=== PATIENT | male | born 1960 | race Two or more races ===

== ENCOUNTER 2023-09-13 14:57 | Inpatient (IN) | payer OTHER ==
[~2023-09-13] VITALS: Ht 175.3 cm; Wt 79.4 kg
[2023-09-13] MEDS ORDERED: ZETIA10 MG PO (15:14)
[2023-09-13] MEDS ORDERED: 0.9 % SODIUM CHLORIDE 1,000 ML IV SCH ×2 (17:00→17:30)
[2023-09-13] MEDS ORDERED: MEPERIDINE HCL 25 MG/ML AMPUL IM PRN (17:00)
[2023-09-13] MEDS ORDERED: PROMETHAZINE HCL 25 MG/ML AMPUL IM PRN (17:00)
[2023-09-13 17:04] LABS: HEMATOCRIT 45.8 % (39.0-48.0); HEMOGLOBIN 15.9 g/dL (13-16.00); MEAN CELL VOLUME 89.8 fL (80.0-100.00); MEAN CORPUSCULAR HEMOGLOBIN 31.1 pg (27.00-32.0); MEAN CORPUSCULAR HGB CONC 34.7 g/dl (32.0-36.0); PLATELET COUNT 275 K/uL (150-450); RED CELL DISTRIBUTION WIDTH 13.4 % (11.5-14.5)
[2023-09-13 17:22] LABS: PARTIAL THROMBOPLASTIN TIME 30.4 SECONDS (22.0-34.0); PROTHROMBIN TIME 10.5 SECONDS (9.0-11.5)
[2023-09-13 17:27] LABS: ALBUMIN 3.6 gm/dL (3.4-5.0); BILIRUBIN TOTAL 0.44 mg/dL (0.3-1.2); CALCIUM 9.3 mg/dL (8.5-10.1); CREATININE SERUM 0.95 mg/dL (0.70-1.30); GFR 80.07; GLOBULINA 3.8 G/DL (2.4-3.5); POTASSIUM 3.97 mEq/L (3.5-5.1); TOTAL PROTEIN 7.4 gm/dL (6.4-8.2)
[2023-09-13] MEDS ORDERED: MEPERIDINE HCL/PF 25 MG/ML VIAL IM PRN (17:45)
[2023-09-13] MEDS ORDERED: ACETAMINOPHEN 500 MG GEL..CAP PO PRN (17:45)
[2023-09-13] MEDS ORDERED: ONDANSETRON HCL 4 MG in 0.9 % SODIUM CHLORIDE 50 ML IV PRN (17:45)
[2023-09-13] MEDS ORDERED: PIPERACILLIN/TAZOBACTAM SODIUM 3.375 GM in 0.9 % SODIUM CHLORIDE 100 ML IV SCH (18:00)
[2023-09-13] MEDS ORDERED: PIPERACILLIN/TAZOBACTAM SODIUM 3.375 GM in DEXTROSE 5 % IN WATER 100 ML IV SCH (18:00)
[2023-09-14 07:31] LABS: PH,URINE 5.5 (5.0-8.0); URINE APPEARANCE Clear; URINE BILIRRUBIN Negative (NEGATIVE); URINE BLOOD Negative; URINE COLOR Yellow; URINE GLUCOSE Negative (NEGATIVE); URINE LEUKOCYTE Negative; URINE NITRATE Negative; URINE PROTEIN Negative (NEGATIVE)
[2023-09-14 07:34] LABS: URINE RBC 3.5 uL (0.0-20.8); URINE WBC 3.7 uL (0.0-23.2)
[2023-09-14 07:37] LABS: URINE EPITHELIAL CELLS 1.2 uL (0.0-38.8)
[2023-09-14] MEDS ORDERED: DEXTROSE 5%-WATER 100ML IV.SOLN ONE (08:11)
[2023-09-14] MEDS ORDERED: ENOXAPARIN SODIUM 40 MG/0.4 ML SYRINGE SUBCUTANEO SCH (09:00)
[2023-09-14] MEDS ORDERED: FAMOTIDINE/PF 20 MG in 0.9 % SODIUM CHLORIDE 8 ML IV PUSH SCH (09:00)
[2023-09-15] MEDS ORDERED: MORPHINE SULFATE 2 MG/ML CARTRIDGE IV PRN (07:00)
[2023-09-17 07:07] LABS: CALCIUM 8.3 mg/dL (8.5-10.1); CREATININE SERUM 0.82 mg/dL (0.70-1.30); GFR 94.89; MAGNESIUM 1.8 mg/dL (1.8-2.4); PHOSPHOROUS 3.3 mg/dL (2.5-4.9); POTASSIUM 3.75 mEq/L (3.5-5.1)
[2023-09-17 07:45] LABS: HEMATOCRIT 40.8 % (39.0-48.0); HEMOGLOBIN 14.3 g/dL (13-16.00); MEAN CELL VOLUME 90.2 fL (80.0-100.00); MEAN CORPUSCULAR HEMOGLOBIN 31.6 pg (27.00-32.0); MEAN CORPUSCULAR HGB CONC 35.1 g/dl (32.0-36.0); PLATELET COUNT 243 K/uL (150-450); RED BLOOD COUNT 4.52 M/uL (4.00-6.00); RED CELL DISTRIBUTION WIDTH 12.9 % (11.5-14.5)
[2023-09-17] MEDS ORDERED: LACTOBACILLUS ACIDOPHILUS 1 CAP CAP PO SCH (10:34)
[2023-09-18] MEDS ORDERED: DIATRIZOATE MEGLUMINE, SODIUM 30 ML BOTTLE PO ONE (06:00)
[2023-09-18] MEDS ORDERED: DEXTROSE 5%-WATER 100ML IV.SOLN ONE (07:56)
[2023-09-19] MEDS ORDERED: AMOX-CLAV 875-1 EACH PO (09:03)
[2023-09-19] MEDS ORDERED: INTESTINEX680 M1 PO (09:03)
== END 2023-09-19 11:38 | disposition home or self-care (01) | DRG 392 ==
LOC: ER 14:58 → MEDJ 17:44 → SEC-K 17:44 → MEDJ 18:44
PROVIDERS: General Practice; ADMIT Internal Medicine; ATTEND Internal Medicine
PROC: BW21YZZ Computerized Tomography (CT Scan) of Abdomen and Pelvis using Other Contrast (ICD-10-PCS; principal; 2023-09-18)
DX: K57.20 Diverticulitis of large intestine with perforation and abscess without bleeding (principal); E78.5 Hyperlipidemia, unspecified; Z20.822 Contact with and (suspected) exposure to COVID-19

== ENCOUNTER 2024-02-07 11:30 | Inpatient (IN) | payer OTHER ==
[~2024-02-07] VITALS: Ht 175.3 cm; Wt 79.4 kg
[~2024-02-07 11:30] MED LIST: AMOX-CLAV 875-1 EACH PO; INTESTINEX680 M1 PO; ZETIA10 MG PO
[2024-02-09] MEDS ORDERED: CEFTRIAXONE SODIUM 2,000 MG VIAL ONE (06:49)
[2024-02-09] MEDS ORDERED: METRONIDAZOLE/SODIUM CHLORIDE 500 MG/100 ML PIGGYBACK IV ONE (06:50)
[2024-02-09] MEDS ORDERED: LIDOCAINE HCL 1%/EPINEPHRINE 20ML VIAL IJ ONE (07:13)
[2024-02-09] MEDS ORDERED: BUPIVACAINE HCL/MPF 0.5% 30ML VIAL ONE (07:13)
[2024-02-09] MEDS ORDERED: FAMOTIDINE40 MG (07:59)
[2024-02-09] MEDS ORDERED: PANTOPRAZOLE SO40 MG (07:59)
[2024-02-09] MEDS ORDERED: SUGAMMADEX SODIUM 200 MG/2 ML VIAL IV ONE (09:25)
[2024-02-09] MEDS ORDERED: LACTOBACILLUS ACIDOPHILUS 1 CAP CAP PO SCH (12:00)
[2024-02-09] MEDS ORDERED: TAMSULOSIN HCL 0.4 MG CAP PO SCH (12:00)
[2024-02-09] MEDS ORDERED: ONDANSETRON HCL 2 MG/ML VIAL IV PRN (12:15)
[2024-02-09] MEDS ORDERED: RINGERS SOLUTION,LACTATED 1,000 ML IV SCH (12:15)
[2024-02-09] MEDS ORDERED: OxyCODONE HCL 5 MG TABLET (ROXICODONE) PO PRN (12:15)
[2024-02-09] MEDS ORDERED: MORPHINE SULFATE 4 MG/ML CARTRIDGE IV PRN (12:15)
[2024-02-09] MEDS ORDERED: FAMOTIDINE/PF 20 MG/2 ML VIAL IV NR (12:30)
[2024-02-09] MEDS ORDERED: HYOSCYAMINE SULFATE 0.125 MG TAB.SUBL SL SCH (13:00)
[2024-02-09] MEDS ORDERED: GABAPENTIN 300 MG CAPSULE PO SCH (17:00)
[2024-02-09] MEDS ORDERED: METRONIDAZOLE/SODIUM CHLORIDE 500 MG/100 ML PIGGYBACK IV SCH (17:00)
[2024-02-09] MEDS ORDERED: ACETAMINOPHEN 500 MG GEL..CAP PO SCH (18:00)
[2024-02-09] MEDS ORDERED: CIPROFLOXACIN IN 5 % DEXTROSE 400 MG/200 ML PIGGYBAG IV SCH (21:00)
[2024-02-09] MEDS ORDERED: FAMOTIDINE/PF 20 MG/2 ML VIAL IV PUSH SCH (21:00)
[2024-02-10 08:36] LABS: HEMOGLOBIN 13.8 g/dL (13-16.00); MEAN CELL VOLUME 91.3 fL (80.0-100.00); MEAN CORPUSCULAR HEMOGLOBIN 32.3 pg (27.00-32.0); MEAN CORPUSCULAR HGB CONC 35.4 g/dl (32.0-36.0); PLATELET COUNT 208 K/uL (150-450); RED BLOOD COUNT 4.28 M/uL (4.00-6.00); RED CELL DISTRIBUTION WIDTH 13.4 % (11.5-14.5)
[2024-02-10 08:56] LABS: ALBUMIN 3.1 gm/dL (3.4-5.0); CALCIUM 8.8 mg/dL (8.5-10.1); CREATININE SERUM 0.89 mg/dL (0.70-1.30); GFR 86.33; PHOSPHOROUS 2.2 mg/dL (2.5-4.9); POTASSIUM 4.93 mEq/L (3.5-5.1)
[2024-02-10] MEDS ORDERED: ENOXAPARIN SODIUM 40 MG/0.4 ML SYRINGE SUBCUTANEO SCH (17:00)
[2024-02-10] MEDS ORDERED: METRONIDAZOLE/SODIUM CHLORIDE 500 MG/100 ML PIGGYBACK IV SCH (22:15)
[2024-02-10] MEDS ORDERED: CIPROFLOXACIN IN 5 % DEXTROSE 400 MG/200 ML PIGGYBAG IV SCH (22:15)
[2024-02-11 08:25] LABS: HEMATOCRIT 39.2 % (39.0-48.0); HEMOGLOBIN 13.7 g/dL (13-16.00); MEAN CELL VOLUME 92.6 fL (80.0-100.00); MEAN CORPUSCULAR HEMOGLOBIN 32.4 pg (27.00-32.0); PLATELET COUNT 206 K/uL (150-450); RED BLOOD COUNT 4.23 M/uL (4.00-6.00); RED CELL DISTRIBUTION WIDTH 13.2 % (11.5-14.5)
[2024-02-11 09:00] LABS: CALCIUM 8.9 mg/dL (8.5-10.1); CREATININE SERUM 0.88 mg/dL (0.70-1.30); GFR 87.46; POTASSIUM 3.79 mEq/L (3.5-5.1)
[2024-02-11] MEDS ORDERED: ENOXAPARIN SODIUM 40 MG/0.4 ML SYRINGE SUBCUTANEO SCH ×2 (09:00→17:00)
[2024-02-11] MEDS ORDERED: POTASSIUM PHOS,M-BASIC-D-BASIC 18 MM in 0.9 % SODIUM CHLORIDE 250 ML IV NR (12:30)
[2024-02-12] MEDS ORDERED: CELECOXIB200 MG PO (16:06)
[2024-02-12] MEDS ORDERED: NEURONTIN300 MG PO (16:06)
[2024-02-12] MEDS ORDERED: TRAM1TAB98 PO (16:06)
== END 2024-02-12 18:10 | disposition home or self-care (01) | DRG 330 ==
LOC: O/R 02-09 05:20 → SURH 02-09 05:20
PROVIDERS: ADMIT Surgery; ATTEND Surgery
PROC: 0DBP4ZZ Excision of Rectum, Percutaneous Endoscopic Approach (ICD-10-PCS; 2024-02-09)
PROC: 0DTN4ZZ Resection of Sigmoid Colon, Percutaneous Endoscopic Approach (ICD-10-PCS; 2024-02-09)
PROC: 8E0W4CZ Robotic Assisted Procedure of Trunk Region, Percutaneous Endoscopic Approach (ICD-10-PCS; 2024-02-09)
PROC: 0DQ84ZZ Repair Small Intestine, Percutaneous Endoscopic Approach (ICD-10-PCS; principal; 2024-02-09 10:45)
DX: K57.20 Diverticulitis of large intestine with perforation and abscess without bleeding (principal); K91.71 Accidental puncture and laceration of a digestive system organ or structure during a digestive system procedure; K66.0 Peritoneal adhesions (postprocedural) (postinfection)
CPT/HCPCS: 44207; 44213; S2900